=== PATIENT | female | born 1955 | race Caucasian/White ===

== ENCOUNTER 2018-06-25 10:04 | Emergency (ER) | payer MEDICARE, BC ==
[~2018-06-25] VITALS: Ht 167.6 cm; Wt 72.6 kg
--- NOTE | 2018-06-25 10:20 | NUR ---
patient presented to the ER c/o back pain x 3 days, alert and oriented, breathing evenly, and unlabored. on room air. connected to the monitor and pulse ox. kept comfortable. will continue to monitor accordingly.
--- NOTE | 2018-06-25 10:50 | NUR ---
PT TO XRAY VIA MALI
[2018-06-25] MEDS ORDERED: HYDROCODONE/APAP 10/325MG 1 EA TABLET ONE ×2 (10:51→10:55)
[2018-06-25] MEDS ORDERED: HYDROCODONE/APAP 10/325MG 1 EA TABLET PO ONE (11:00)
[2018-06-25 12:58] LABS: APPEARANCE,URINE Clear (CLEAR); BILIRUBIN,URINE Negative (NEGATIVE); BLOOD, URINE Trace-intact Ery/uL (NEGATIVE); COLOR,URINE Yellow (YELLOW); KETONES,URINE Negative (NEGATIVE); LEUKOCYTE ESTERASE ,URINE Negative (NEGATIVE); NITRITE, URINE Negative (NEGATIVE); PH,URINE 5.5 (5.0-8.0); PROTEIN,URINE Negative (NEGATIVE); UGLUCOSE Negative (NEGATIVE); UROBILINOGEN,URINE 0.2 EU/dL (0.2)
[2018-06-25 13:00] LABS: BACTERIA,URINE Rare /HPF (None Seen); RBC,URINE 0-2 /HPF (0-2); SQUAMOUS EPITHELIAL CELL,UR Few /HPF (None Seen); WBC,URINE 0-2 /HPF (0-3)
[2018-06-25] MEDS ORDERED: IBUPROFEN 400 MG TABLET PO ONE (13:00)
[2018-06-25] MEDS ORDERED: MORPHINE SULFATE INJ 2 MG/ML DISP.SYRIN IM ONE (13:00)
[2018-06-25] MEDS ORDERED: MORPHINE SULFATE INJ 2 MG/ML DISP.SYRIN ONE (13:01)
[2018-06-25] MEDS ORDERED: IBUPROFEN 400 MG TABLET ONE (13:01)
[2018-06-25 13:29] VITALS: BP 135/71
--- NOTE | 2018-06-25 13:31 | NUR ---
Patient discharged to home in stable condition. Written and verbal after care instructions given. Patient verbalizes understanding of instruction.
== END 2018-06-25 13:30 | disposition home or self-care (01) ==
LOC: ER 10:04
DX: M54.16 Radiculopathy, lumbar region (principal); F17.200 Nicotine dependence, unspecified, uncomplicated; Z90.710 Acquired absence of both cervix and uterus; Z98.890 Other specified postprocedural states; Z85.850 Personal history of malignant neoplasm of thyroid; Z88.5 Allergy status to narcotic agent; Z98.1 Arthrodesis status
CPT/HCPCS: 72131; 81001; 96372; 99284; A4606; J2270; 81000-TC